=== PATIENT | male | born 1950 | race Caucasian/White ===

== ENCOUNTER → 2021-06-28 10:42 | Outpatient (CLI) | payer MEDICARE, SELFPAY ==
[2021-06-28 14:13] LABS: COVID19 -Nasal RAPID Negative (Negative)
== END ==
PROVIDERS: Visit Provider Physician Assistant
DX: Z20.822 Contact with and (suspected) exposure to COVID-19 (principal)
CPT/HCPCS: 87635; C9803

== ENCOUNTER 2021-07-01 05:59 | Observation (INO) | payer MEDICARE, SELFPAY ==
[2021-06-20 11:33] VITALS: BMI 32.3
[2021-07-01] VITALS (13 sets, daily range): BP systolic 103–160; BP diastolic 51–81; PULSE 49–75; RESP 12–20; TEMP 36.2–37.5; O2SAT 14–98; BMI 32.5
--- NOTE | 2021-07-01 06:00 | DI.RAD.S_ITS ---
PROCEDURE: XR KNEE LT 1TO2V INDICATIONS: prosthesis placement TECHNIQUE: 2 view(s) of the knee acquired. COMPARISON: None. FINDINGS: Bones: Patient is status post knee joint arthroplasty. Hardware components are in expected positions. Visualized bony structures are intact. Soft tissues: Overlying postoperative changes are noted. IMPRESSION: Postop changes from left total knee arthroplasty with anatomic left knee alignment. Dictated by: Lopez Bergman M.D. on 07/01/2021 at 10:49 Approved by: Lopez Bergman M.D. on 07/01/2021 at 10:49
[2021-07-01] MEDS: LACTATED RINGERS 1,000 ML 42 ML IV ×2 (07:06→09:17)
[2021-07-01] MEDS: CELECOXIB 200 MG CAPSULE PO (07:20)
[2021-07-01] MEDS: PREGABALIN 75 MG CAPSULE PO (07:20)
[2021-07-01] MEDS: ACETAMINOPHEN 325 MG TABLET 975 MG PO (07:20)
--- NOTE | 2021-07-01 07:25 | SUR.PREOP ---
Monitoring initiated and maintained throughout procedure. O2 2LNC applied. 0737 - Adductor canal nerve block started. 0739 - Timeout performed by Dr Arredondo. 0741 -Injection time. 0742 - Block end time. Patient remained stable throughout procedure. No adverse reactions noted.
--- NOTE | 2021-07-01 07:27 | PM.PREOP ---
Pre-operative Note COVID-19 COVID-19 status: Negative Result date/Date tested (Pos, Neg/Pending): 06/28/21 Interval Note History & Physical reviewed/Exam performed by Physician: Yes Changes to H&P: No
--- NOTE | 2021-07-01 07:27 | PM.OP.1 ---
Operative Date/Time/Diagnoses Date of procedure: 07/01/21 Time of procedure: 09:38 Pre-op diagnosis: Left knee osteoarthritis Post-op diagnosis: same Procedure & Clinicians Procedure: Left total knee replacement Same procedure as scheduled: Yes Indications: The patient has had progressively worsening left knee pain with radiographic changes consistent with arthritis. Non-operative management has failed and the patient has requested total knee replacement. The risks, benefits and alternatives to surgery were discussed with the patient prior to proceeding. Risks discussed included, but were not limited to, failure to relieve pain, stiffness, infection, nerve damage, deep venous thrombosis, pulmonary embolism, stroke, coma, heart attack, permanent paralysis and , as well as the potential need for eventual revision of the prosthetic. Surgeon: Jordin Ibanez Pulling Unit Operator: Miguel Angel Hahn Click Yes if Unassisted: No Anesthesia Type: General, Spinal and Local Operative Notes Findings: Significant tricompartmental osteoarthritis particularly in the medial and patellofemoral joints. Closure Type: primary Specimen(s): none sent Prosthetic devices, grafts, tissues, transplants, or devices: Implants used in this procedure were manufactured by the [employer] and [employer] and included the BCS II Journey total knee replacement with a size 8 Oxinium femoral component, size 7 left non porous tibial base plate, a 9 mm cross-linked polyethylene insert, and a 38 mm oval Arlin II patellar component. Applied: implant(s) Estimated Blood Loss (mL): 25 Blood products transfused: none Tourniquet time (min): 56 Procedure in detail: The patient was seen in the pre-operative area, where the left knee was identified as the operative site and this was marked with my initials. The patient received pre-operative antibiotics, and was taken to the operating room and placed on the operative table in the supine position. After satisfactory anesthesia, a full stack web developer out was performed. The left leg was encircled with a tourniquet about the proximal thigh, and the leg was prepared from the toes to the tourniquet with ChloroPrep in the usual fashion and draped through sterile drapes. The leg was elevated and exsanguinated with Eschmark bandage and the tourniquet inflated to 250 mmHg pressure. The knee was approached through an approximately 18 cm incision centered over the patella and carried into the knee through a medial parapatellar arthrotomy. The anterior osteophytes and soft tissues were removed. The rotational landmarks of Chualar's line and the transepicondylar axis were marked on the femur with electrocautery, and intramedullary guide holes for the femur and tibia were created. The distal femoral cut was made in 6 degrees of valgus using the intramedullary guide at the primary cut setting. The proximal tibial cut was then made using the intramedullary guide, taking 9 mm of bone off the less involved side. The extension gap was checked and the rotation of the femoral component confirmed with the gap balancing blocks. The anterior, posterior and chamfer cuts were then made. The posterior osteophytes and soft tissues were then removed. The posterior capsule was injected with part of a mixture of 60 ml 0.25% Marcaine mixed with 20 ml Exparel and 4 mg of morphine for post-operative pain control. The remainder of this mixture was injected into the capsule and subcutaneous tissues during cement curing. The tibia was prepared with the rotation set by an extra medullary guide. Trial tibial and femoral components were then placed and the intercondylar notch cut through the femoral trial. Range of motion was 0-135 degrees, with good stability throughout the range. The patella was then cut to accommodate the patellar prosthetic. There was no need for a lateral release. The trials were then removed, and the femoral hole plugged with a bone plug. The bone was prepared with pulsatile lavage, and dried with a sponge. Cement was applied and the final prosthetics placed. Excess cement was removed during and after cement curing. After confirming there was no extruded cement posteriorly, the final tibial insert was placed. The knee was copiously irrigated and the tourniquet deflated. Hemostasis was obtained. The capsule was closed with interrupted # 2 polyester sutures. The subcutaneous layer was closed with 3-0 Vicryl, and the skin with a running 3-0 V-Lock suture and Dermabond. An Aquacel Ag dressing was applied and the patient was taken to recovery having tolerated the procedure well. Post-operative Condition: stable Disposition: PACU Plan for aftercare: The patient will be maintained on a standard total knee replacement protocol with weight bearing as tolerated. The patient will receive aspirin and sequential compression devices for DVT prophylaxis. The patient will be discharged home when safe for the home environment.
[2021-07-01] MEDS: TRANEXAMIC ACID 1,000 MG VIAL 1000 MG INJ ×2 (08:04→09:09)
[2021-07-01] MEDS: CEFAZOLIN 1 GM VIAL 2 GM IV (08:04)
--- NOTE | 2021-07-01 08:19 | PM.PROC.1 ---
Procedures Date/Time Date of procedure: 07/01/21 Time of procedure: 07:40 Nerve Block Time out performed: Yes Local anesthetic used: bupivacaine 0.5% Location of anesthetic used: LEFT Amount of anesthesia used (mL): 20 Nerve blocks: femoral (adductor canal) Procedure successful: Yes Patient tolerated procedure: well and no complications Complications: none Additional comments: Adductor canal nerve block performed for post-op pain control at surgeon request. Patient was positioned with IV, O2, monitors and rescue meds available. Prepped and timeout performed. Target identified with continuous ultrasound guidance. 20mL of bupivicaine 0.25% was injected perineurally with intermittent aspiration and injection. No blood, no paresthesias, no acute complications. Ultrasound pic attained.
--- NOTE | 2021-07-01 08:22 | SUR.OPER ---
Supine on padded OR bed. Pillow under head, arms secured on padded armboards <90 degree abduction. Safety belt across torso. Right leg secured with tape over blanket over lower leg. Left leg secured in DeMay positioner. Foam padded brace at thigh of operative leg.
[2021-07-01] MEDS: BUPIVACAINE 0.25% (PF) 60 ML, EPINEPHrine 0.3 MG INJ (08:28)
[2021-07-01] MEDS: BUPIVACAINE LIPOSOME 266 MG/20 ML VIAL INJ (08:29)
[2021-07-01] MEDS: MORPHINE 4 MG/ML INJ INJ (08:30)
--- NOTE | 2021-07-01 10:36 | SUR.PHASEI ---
Pacu note: 1014-Patient wide aa&Ox4. vss. spinal progressing downward.sensation=dull at knees bilaterally. able to see begin to move rt foot and attempt bend knee, left foot/toes-no motion and lateral leg motion improving. BLE +2 dp/pt palpable pulses,less than 3 sec refill, toes cool to touch but improving. iv converted to saline lock rt arm. tolerating ice chips well. no nausea or pain. dsg to left knee cdi-no drains. HNV. no signs of sleep apnea noted. 1015-Report to Alex FOWLER on floor by phone . Pt meets criteria for transfer. 1025-off monitor and transfer pt by bed with walker,cpap, and 1 bag of clothes. 1030-update at bedside to Alex FOWLER.
[2021-07-01] MEDS: LACTATED RINGERS 1,000 ML 100 ML IV (11:51)
[2021-07-01] MEDS: ACETAMINOPHEN 325 MG TABLET 650 MG PO ×2 (14:33→20:48)
--- NOTE | 2021-07-01 14:34 | PT.IIE ---
Current Diagnoses Unilateral primary osteoarthritis, left knee (07/01/21) Surgery Performed Operation Date: 07/01/21 07:45 Actual Procedures p Total Knee Arthroplasty(Left) - Jordin Ibanez MD Medical History (Last Updated 06/20/21 @ 11:17 by Alexsandra Crespo RN) Acid reflux CAD (coronary artery disease) Deviated septum Easy bruisability Hearing impaired HLD (hyperlipidemia) HTN (hypertension) ARTURO on CPAP (2017) Osteoarthritis Skin cancer Physical Therapy Inpatient Evaluation/Re-Eval M1 PT/OT-IP Prior Functional Status Start: 07/01/21 11:35 Freq: NEEDED Status: Active Protocol: Document 07/01/21 14:34 JG (Rec: 07/01/21 15:11 ALONZO [id number]) Medical Review Prior Functional Status Medical History Reviewed Yes Diet/Fluid Consistency Regular Communication pt was able to communicate fully Mobility and Gait Started walking program post- L4/L5 spinal fusion. If walking golf course when golfing, will walk a total of 4-4.25 miles. Knee pain would increase significantly after walking. Would use home cryocuff for icing post- activity. Knee pain has progressively gotten worse in last 3 years. Activities of Daily Living and IADL's Indep for all ADLs Prior Functional Level (Other details) pt had L4-L5 fusion 3 years ago and had to redo surgery 30 days later as disk spacer from placement. lost 40 pounds recently from intentional lifestyle changes. Social History Household Members spouse Living Arrangements House Number of Floors (Floors) One Floor Number of Stairs To Enter/Railing? None Home Environment High Toilet,Walk in Shower, Built-In Shower Seat Home Equipment Front Wheel Walker,Hand Held Shower,Long Handled Shoe Horn Employment Status Retired Additional Social History Comment retired from finance industry. pt and pt's purchased home 3 years ago and remodeled so entire home is level including entry/exit and access to patio. has trekking poles he uses for hiking and plans to transition from FWW to trekking poles as needed post-L TKA. M2 PT-IP Current Condition Start: 07/01/21 11:35 Freq: NEEDED Status: Active Protocol: Document 07/01/21 14:34 JPiper (Rec: 07/01/21 15:11 ALONZO [id number]) Physical Therapy Current Condition Current Condition Evaluation Date 07/01/21 Treatment Diagnosis L TKA, difficulty walking, reduced L knee ROM, reduced L LE sensation Onset Date 07/01/21 M3 PT-IP Subjective Start: 07/01/21 11:35 Freq: NEEDED Status: Active Protocol: Document 07/01/21 14:34 ALONZO (Rec: 07/01/21 15:11 ALONZO [id number]) Subjective Physical Therapy Visit Type Type Initial Evaluation Visit Start Time 13:38 Visit Stop Time 13:34 Total Visit Minutes 56 Notes SPT Tuyet was directly supervised by DPT Taylor Pt was lying supine in bed w/ head and knees elevated. Pt's Monica was in room as well. When asked, pt denied being in pain and stated he was ready to amb. Number of SUPERVISOR RECLAMATION Visits 0 Physical Therapy Visit Comments Patient Comments Pt states he wants to go home today. Pt reports that recovery post-lumbar surgery was worse compared to cardiac bypass surgery and he hopes the TKA will be somewhere inbetween. Patient Goals Walk without pain for unlimited duration. Play golf without pain. Therapy Pain Assessment Pain Present Pain Present Pain Reported Location Headache Intensity 7 Scale Used Numeric (0 - 10) Description Acute,Sharp Pain Behaviors Holding Area Pain Management Techniques Apply Cold L Knee Intensity 2 Scale Used Numeric (0 - 10) Description Aching,Dull,With Movement Pain Management Techniques Apply Cold,Modification of Treatment M4 PT-IP Mobility and Gait Start: 07/01/21 11:35 Freq: NEEDED Status: Active Protocol: Document 07/01/21 14:34 ALONZO (Rec: 07/01/21 15:11 ALONZO [id number]) PT-Bed Mobility Assessment Rolling Type of Rolling Roll to Left Level of Assist Standby Assistance Supine to Sit Supine to Sit Standby Assistance,Head of Bed Elevated Sit to Supine Sit to Supine Standby Assistance,Head of Bed Elevated Scooting Scooting to Edge of Bed Standby Assistance Scooting Up and Down in Bed Standby Assistance PT-Transfer Assessment Sit to and From Stand Sit to and from Stand Contact Guard Assistance, Minimal Assistance Equipment Transfer Assistive Device Bed Rail,Gait Belt,Front Wheeled Walker Orthotic/Prosthetic Devices or Brace: No Transfers Transfer Destination Chair Transfer Technique Stand Step Pivot Transfer Ability Level of Assist Contact Guard Assistance, Minimal Assistance Comments Mobility Comments Pt required mod cueing to decrease L knee flex during transfers and bed mob. Pt wanted head of bed elevated for bed mob. Pt req mod cueing for waiting on gait belt, FWW management, and PT role in transfers. Pt was eager to amb and may need continued safety and body mechanics education. Gait Assessment Gait Gait Assistance Required: Contact Guard Assist,Minimum Assistance Distance (Feet) 15 Able to Maintain Weight Bearing Status Yes During Gait Assistive Devices Assistive Device Gait Belt,Front Wheeled Walker Orthotic/Prosthetic Devices or Brace: No Gait Deviations General Gait Pattern Within Normal Limits Factors Limiting Gait Function Factors Limiting Gait Function Decreased Activity Tolerance, Decreased Sensation,Limited Range of Motion Comments Gait Comments Decreased weight bearing on L. Upon standing, pt began involuntarily voiding which continued while amb. Pt didn't have the urge to void likely due to decreased sensation. Pt requested disposable padded underwear which were provided. This is likely due to decreased sensation. After approx 15 feet of amb, while in bedside chair, pt had sudden onset of sharp headache . Vitals before amb supine in bed: 126/56, 64 bpm. Vitals after headache onset seated in bedside chair: 185/90, 60bpm. Vitals end of session supine in bed: 160/75, 56bpm. PT-Balance Assessment Sitting Balance and Reactions Static Sitting Balance Ability Normal Standing Balance and Reactions Static Standing Balance Ability Good Dynamic Standing Balance Ability Fair Comments Other Balance Tests/Deviations/Treatment balance affected by sensation : disturbance M5 PT-IP Objective Assessments Start: 07/01/21 11:35 Freq: NEEDED Status: Active Protocol: Document 07/01/21 14:34 (Rec: 07/01/21 15:11 [id number]) Orientation Orientation/Cognition Level of Alertness Alert Orientation Name,Birthday,Place,Situation Language Function Ability No Deficits Noted Safety Awareness Decreased Safety Awareness Memory Description No Deficits Noted Gross Range of Motion Upper Extremity ROM Assessment Within Functional Limits Lower Extremity ROM Assessment Left Impaired Impairments Knee AROM mild decreased flex and mod decreased ext Strength Upper Extremity Strength Assessment Within Functional Limits Lower Extremity Strength Assessment Within Functional Limits Coordination Assessment Gross Coordination Gross Coordination WNL Sensation Assessment Sensation Gross Sensation Left LE Impaired Light Touch Impaired Proprioception (Position) Impaired Sensation Description Numbness Muscle Tone Muscle Tone WNL Yes M6 PT-IP Treatment Start: 07/01/21 11:35 Freq: NEEDED Status: Active Protocol: Document 07/01/21 14:34 JG (Rec: 07/01/21 15:11 Melony [id number]) Physical Therapy Treatment Exercises Exercises Heel Slides Education Education Provided Precautions,Weight Bearing Status,Post-Op Packet,Safety M7 PT-IP Assessment and Plan Start: 07/01/21 11:35 Freq: NEEDED Status: Active Protocol: Document 07/01/21 14:34 JPiper (Rec: 07/01/21 15:11 Melony [id number]) PT Summary Assessment and Plan Potential Rehabilitation Potential Excellent Status of Condition at Evaluation Evolving Summary Impairments ROM,Sensation,Bed Mobility, Transfers,Gait,Activity Tolerance Assessment Summary Pt is 71 year old male s/p L TKA. PLOF: Pt was previously able to walk up to 4.25 miles while golfing with significant increase in L knee pain which was allevated some with icing . CLOF: Pt was able to transfer from bed to bedside chair and amb approx 15 feet w /FWW and CGA-min A in the room . After 15 feet of amb, while sitting in bedside chair, pt had an sudden onset of sharp headache. Nurse was contacted and provided IV medication and cold compress. Pt was assisted back into bed. PT anticipates pt will progress while at hospital to be able to safely discharge home w/ caregiving. Pt will require outpatient PT for L TKA rehab and recovery. Goals Bed Mobility Goal Independent Transfer Goal Standby Assistance,Front Wheeled Walker Gait Goal Standby Assistance,Front Wheel Walker Gait Distance 200 Days to Meet Goals 2 Frequency of Treatment Frequency Of Treatment Twice a Day Treatment Plan Physical Therapy Treatment Plan Bed Mobility Training,Transfer Training,Gait Training, Therapeutic Exercise,Post Op Education,Discharge Planning, Hot or Cold Pack,Neuromuscular Re-ed Other Recommendations and Next Treatment Pt education re safety and L Focus LE placement during transfers and bed mob. Gait training to increase amb and activity tolerance. Monitor vital signs during activity. Weight Bearing Status Weight Bearing Status Weight Bear as Tolerated Recommendations To Nursing Amount of Assist Needed 1 Person Assist Discharge Recommendations PT Discharge Recommendations Home,Home with Assistance, Outpatient PT Transportation Needs at Discharge Private Vehicle Treatment was provided by Tuyet Whitmore, SPT and supervised by Taylor Bhatt, PT. I personally reviewed this note and agree with its contents.
[2021-07-01] MEDS: HYDROMORPHONE 0.5 MG INJ 0.2 MG IV (14:36)
--- NOTE | 2021-07-01 14:58 | PC.NURSE ---
Patient reported headache when attempting to work with PT for first time. Per PT patient was incontinent of urine when standing up and still having numbness to left leg. Patient reports dull ache to left knee. Requests icy cold washcloth across forehead. Given tylenol as scheduled and prn IV dilaudid. Denies n/v, chest pain, jaw pain or other complaint. Patient states headache is resolving once laying back in bed with washcloth on. Call light and urinal within reach. Will continue to follow
[2021-07-01] MEDS: hydrOXYzine pamoate 25 MG CAPSULE PO (20:48)
[2021-07-01] MEDS: IBUPROFEN 400 MG TABLET PO (20:48)
[2021-07-01] MEDS: ASPIRIN EC 81 MG TABLET PO (20:48)
[2021-07-01] MEDS: METOPROLOL IR 25 MG TABLET PO (20:49)
[2021-07-01] MEDS: ATORVASTATIN 20 MG TABLET 40 MG PO (20:49)
[2021-07-01] MEDS: TAMSULOSIN 0.4 MG CAPSULE PO (20:49)
[2021-07-01] MEDS: DOCUSATE 100 MG CAPSULE PO (20:49)
[2021-07-02] MEDS: HYDROMORPHONE 0.5 MG INJ 0.2 MG IV (02:42)
[2021-07-02 04:16] VITALS: BP 120/60; PULSE 45; RESP 17; TEMP 36.6; O2SAT 93
[2021-07-02] MEDS: PANTOPRAZOLE DR 40 MG TABLET PO (06:33)
[2021-07-02 07:30] VITALS: BP 139/64; PULSE 46; RESP 16; TEMP 36.5; O2SAT 95
--- NOTE | 2021-07-02 07:31 | P.DS_ITS ---
History of Present Illness History of Present Illness Date Patient Seen: 07/02/21 Time Patient Seen: 07:32 Chief complaint: Left knee pain s/p left TKA Narrative: Patient is complaining of mild left knee pain this morning. He denies any new numbness or tingling, although he has baseline numbness in bilateral feet due to back surgery 3 years ago. Overall he is feeling well and would like to be discharged home today Discharge Providers Provider Discharge Date: 07/02/21 Primary care physician: Alen Hernandez MD Consults: 07/01/21 10:31 Consult to Discharge Planning Routine Comment: Consult to Physical Therapy Evaluate & Treat Comment: Physician Instructions: postop TKA protocol Discharge provider: Nelida Dobbs PA-C Summary Hospital Course Discharge Diagnosis: Left knee osteoarthritis Hospital Course: Date of procedure: 07/01/21 Time of procedure: 09:38 Procedure & Clinicians Procedure: Left total knee replacement Same procedure as scheduled: Yes Indications: The patient has had progressively worsening left knee pain with radiographic changes consistent with arthritis. Non-operative management has failed and the patient has requested total knee replacement. The risks, benefits and alternatives to surgery were discussed with the patient prior to proceeding. Risks discussed included, but were not limited to, failure to relieve pain, stiffness, infection, nerve damage, deep venous thrombosis, pulmonary embolism, stroke, coma, heart attack, permanent paralysis and , as well as the potential need for eventual revision of the prosthetic. Surgeon: Jordin Ibanez Relationship Advisor: Miguel Angel Hahn Click Yes if Unassisted: No Anesthesia Type: General, Spinal and Local Operative Notes Findings: Significant tricompartmental osteoarthritis particularly in the medial and patellofemoral joints. Closure Type: primary Specimen(s): none sent Prosthetic devices, grafts, tissues, transplants, or devices: Implants used in this procedure were manufactured by the [employer] and [employer] and included the BCS II Journey total knee replacement with a size 8 Oxinium femoral component, size 7 left non porous tibial base plate, a 9 mm cross-linked polyethylene insert, and a 38 mm oval Arlin II patellar component. Applied: implant(s) Estimated Blood Loss (mL): 25 Blood products transfused: none Tourniquet time (min): 56 Status at Discharge Cognitive/behavioral status at discharge: oriented Functional status at discharge: uses cane/walker Overall status at discharge: patient is progressing back to baseline Exam Vital Signs (past 8 hours): - 07/02/21 04:16 Temperature 97.8 F Pulse Rate 45 L Respiratory Rate 17 Blood Pressure 120/60 Pulse Oximetry 93 Oxygen Delivery Method Room Air Oxygen Flow Rate 0 Narrative Exam Narrative: Pleasant 71-year-old male, resting comfortably in bed, no acute distress. Dressing is clean, dry, intact. Bilateral lower extremity motor functions are grossly intact, sensation is grossly intact to light touch bilaterally. Calves are soft, nontender to palpation. Objective Labs Result Diagrams: 07/02/21 06:45 PFSH Medical History Acid reflux CAD (coronary artery disease) Deviated septum Easy bruisability Hearing impaired HLD (hyperlipidemia) HTN (hypertension) ARTURO on CPAP (2016) Osteoarthritis Skin cancer Surgical History History of lumbar spinal fusion (09/2018) Hx of arthroscopy of left knee (2006) Hx of arthroscopy of right knee (2003) Hx of heart artery stent (02/2009) Hx of heart artery stent (10/2012) Hx of heart artery stent (06/2016) Hx of umbilical hernia repair (2004) S/P CABG x 4 (2005) Social History household members: spouse Smoking Status: Never smoker alcohol intake: current Discharge Assessment & Plan Assessment and Plan Assessment: Stable status post left total knee arthroplasty Plan of Treatment: -mobilize with PT. Weightbearing as tolerated with front wheel walker -continue with current pain regimen and DVT prophylaxis. We will cancel ibuprofen and change to meloxicam. -DC home today once cleared by PT. Discharge Plan Discharge Plan Patient Disposition: Home Discharge orders & Medications Discharge Orders: Discharge (Order); Ordered 07/02/21 Ordered By: Nelida Dobbs Prescriptions: New acetaminophen 500 mg capsule 500 mg PO Q4H MDD Max 3000 mg per day PRN (Reason: fever or pain) Qty: 90 0RF aspirin 81 mg Tablet,Delayed Release (Dr/Ec) 81 mg PO BID 42 Days Qty: 84 0RF Rx Instructions: Prevent blood clots docusate sodium 100 mg Capsule 100 mg PO BID PRN (Reason: Constipation from narcotic pain meds) Qty: 30 0RF hydroxyzine pamoate 25 mg Capsule 25 mg PO Q6HR PRN (Reason: Pain, spasm, nausea) Qty: 40 1RF meloxicam 15 mg tablet 15 mg PO DAILY PRN (Reason: Pain/inflammation) 42 Days Qty: 45 0RF oxycodone 5 mg Tablet 5 mg PO Q3HR PRN (Reason: Pain, Moderate (4-6)) Qty: 30 0RF Continued sennosides [senna] 8.6 mg tablet 8.6 mg PO BID PRN (Reason: Constipation) 0RF tamsulosin 0.4 mg capsule 0.4 mg PO BEDTIME 0RF rosuvastatin [Crestor] 20 mg tablet 20 mg PO BEDTIME 0RF metoprolol tartrate 25 mg tablet 25 mg PO BID 0RF lansoprazole 30 mg Capsule,Delayed Release(Dr/Ec) 30 mg PO BEDTIME 0RF Discontinued acetaminophen 500 mg Tablet 1,000 mg PO BID PRN (Reason: Pain) 0RF Follow up/Referrals: Alen Hernandez MD [Primary Care Provider] - Jordin Ibanez MD [Physician] - (10-14 days for a postoperative visit) Diet/Activity/Treatments Diet: Diet as Tolerated and Regular Other treatments: Medications: -Aspirin 81mg twice daily x6 weeks to prevent blood clots. -OTC Tylenol 500 mg 1 tablet every 4 hours as needed for pain/fever. Max 6 tablets per day. -meloxicam 15 mg 1 tablet daily for pain/inflammation. -Oxycodone 5 mg take 1-2 tablets every 4 hours as needed for moderate-severe pain (narcotic pain medication). -Vistaril (hydroxyine) 25mg 1 tab every 4 hours as needed for spasms/pain/nausea. -As needed medications: -Ducolax and /or MiraLax as needed for constipation from narcotic pain medications. -Pepcid AC as needed for stomach upset (usually from aspirin or ibuprofen). Dressing/Wound care: -Remove the Rony wrap 48 hours after surgery. -Keep Aquacell dressing in place until postoperative follow-up office visit. -Okay to shower. Keep wound out of direct water stream. No soaking or submerging until all the scabs fall off (approximately 6 weeks). -Please call the office if dressing becomes wet, soiled, or saturated. Activities: -Weight-bearing as tolerated. Use front wheeled walker, and progress to cane when safe. -Continue with home exercises as directed by your physical therapist. -Elevate ?toes above the nose if you have significant swelling in your lower leg. (A wedge pillow is easiest.) -Ice your incision as needed for pain/inflammation/swelling. Protect your skin with a folded pillowcase. Follow-up: -Follow-up with your surgeon or PA in the office in 10-14 days after surgery. -Follow-up with your surgeon 6 weeks postoperatively. Call the office if you have chest pain, shortness of breath, significant swelling that will not resolve with elevating, fever over 101?, significantly worsening pain. [facility]: [phone] Skin/Wound/Dressing Care Report to your healthcare provider any signs of infection, such as:: chills, fever, night sweats, unusual drainage and unusual redness Visit Report/Discharge Packet Instructions: DI for Knee Replacement Stand Alone Forms: Surgery Discharge Discharge Data Primary Care Provider: Alen Hernandez Attending Provider: Jordin Ibanez
[2021-07-02 07:33] LABS: Hematocrit 42.8 % (41-53); Hemoglobin 14.7 g/dL (13.5-17.5)
[2021-07-02] MEDS: METOPROLOL IR 25 MG TABLET PO (08:56)
[2021-07-02] MEDS: DOCUSATE 100 MG CAPSULE PO (08:56)
[2021-07-02] MEDS: ASPIRIN EC 81 MG TABLET PO (08:56)
[2021-07-02] MEDS: ACETAMINOPHEN 325 MG TABLET 650 MG PO (08:57)
[2021-07-02] MEDS: MELOXICAM 7.5 MG TABLET 15 MG PO (09:03)
--- NOTE | 2021-07-02 10:00 | PT.IPTN ---
Current Diagnoses Unilateral primary osteoarthritis, left knee (07/01/21) Surgery Performed Operation Date: 07/01/21 07:45 Actual Procedures p Total Knee Arthroplasty(Left) - Jordin Ibanez MD Physical Therapy Treatment Note M2 PT-IP Current Condition Start: 07/01/21 11:35 Freq: NEEDED Status: Discharge Protocol: Document 07/01/21 14:34 JG (Rec: 07/01/21 15:11 JG [id number]) Physical Therapy Current Condition Current Condition Evaluation Date 07/01/21 Treatment Diagnosis L TKA, difficulty walking, reduced L knee ROM, reduced L LE sensation Onset Date 07/01/21 M3 PT-IP Subjective Start: 07/01/21 11:35 Freq: NEEDED Status: Discharge Protocol: Document 07/02/21 09:21 KS (Rec: 07/02/21 12:13 KS [id number]) Subjective Physical Therapy Visit Type Type Treatment Note Visit Start Time 09:21 Visit Stop Time 10:00 Total Visit Minutes 39 Number of METAL NUMERICAL CONTROL PROGRAMMER Visits 1 Physical Therapy Visit Comments Patient Comments Pt agreeable to work with therapy. M4 PT-IP Mobility and Gait Start: 07/01/21 11:35 Freq: NEEDED Status: Discharge Protocol: Document 07/02/21 09:21 KS (Rec: 07/02/21 12:13 KS [id number]) PT-Bed Mobility Assessment Scooting Scooting to Edge of Bed Standby Assistance Scooting Up and Down in Bed Standby Assistance PT-Transfer Assessment Sit to and From Stand Sit to and from Stand Standby Assistance,1 Person Assistance,Use of Upper Extremities Equipment Transfer Assistive Device Gait Belt,Front Wheeled Walker Orthotic/Prosthetic Devices or Brace: No Transfers Transfer Destination Chair Transfer Technique Pt ambulated w/ FWW Transfer Ability Level of Assist Standby Assistance,Contact Guard Assistance,1 Person Assistance,Use of Upper Extremities Comments Mobility Comments Pt in chair upon arrival from therapy. SBA for sit<>stand w/ FWW and cues to extend LLE to decrease pain when standing. Pt denied dizziness or lightheadedness. He then ambulated ~100 ft w/ FWW SBA to CGA. Pt demonstrated approproate use of FWW, cues for equal step length. Pt returned to room and chair and refused bed mobility, stating he will likely sleep in recliner or bed w/ wedge pillow. Reveiwed LE exercises to improve blood flow, strengthening, and ROM. Pt tolerated exercises well. Pt feels he is ready to return home w/ to assist. Pt left in room w/ all needs in reach. Gait Assessment Gait Gait Assistance Required: Standby Assistance,Contact Guard Assist,1 Person Assist Distance (Feet) 100 Able to Maintain Weight Bearing Status Yes During Gait Assistive Devices Assistive Device Gait Belt,Front Wheeled Walker Orthotic/Prosthetic Devices or Brace: No Gait Deviations General Gait Pattern Ataxic,Decreased Stride Length Factors Limiting Gait Function Factors Limiting Gait Function Decreased Activity Tolerance, Decreased Sensation,Limited Range of Motion Comments Gait Comments Please refer to mobility section for details. PT-Balance Assessment Sitting Balance and Reactions Static Sitting Balance Ability Normal Dynamic Sitting Balance Ability Good Standing Balance and Reactions Static Standing Balance Ability Good Dynamic Standing Balance Ability Fair Device Used FWW M5 PT-IP Objective Assessments Start: 07/01/21 11:35 Freq: NEEDED Status: Discharge Protocol: Document 07/01/21 14:34 J (Rec: 07/01/21 15:11 J [id number]) Orientation Orientation/Cognition Level of Alertness Alert Orientation Name,Birthday,Place,Situation Language Function Ability No Deficits Noted Safety Awareness Decreased Safety Awareness Memory Description No Deficits Noted Gross Range of Motion Upper Extremity ROM Assessment Within Functional Limits Lower Extremity ROM Assessment Left Impaired Impairments Knee AROM mild decreased flex and mod decreased ext Strength Upper Extremity Strength Assessment Within Functional Limits Lower Extremity Strength Assessment Within Functional Limits Coordination Assessment Gross Coordination Gross Coordination WNL Sensation Assessment Sensation Gross Sensation Left LE Impaired Light Touch Impaired Proprioception (Position) Impaired Sensation Description Numbness Muscle Tone Muscle Tone WNL Yes M6 PT-IP Treatment Start: 07/01/21 11:35 Freq: NEEDED Status: Discharge Protocol: Document 07/02/21 09:21 KS (Rec: 07/02/21 12:13 ND [id number]) Physical Therapy Treatment Exercises Exercises Ankle Pumps,Gluteal Sets,Quad Sets,Heel Slides,Straight Leg Raises,Short Arc Quads,Seated Knee Flexion/Extension Education Education Provided Precautions,Weight Bearing Status,Post-Op Packet,Safety M7 PT-IP Assessment and Plan Start: 07/01/21 11:35 Freq: NEEDED Status: Discharge Protocol: Document 07/02/21 09:21 KS (Rec: 07/02/21 12:13 KS [id number]) PT Summary Assessment and Plan Potential Rehabilitation Potential Excellent Status of Condition at Evaluation Evolving Summary Impairments ROM,Sensation,Bed Mobility, Transfers,Gait,Activity Tolerance Assessment Summary Pt demonstrated decreased need for assist today. SBA for sit <>stand, SBA to CGA for ambulation w/ FWW. Pt demonstrated good use of FWW and was able to ambulate ~100 ft, gait improved equal step lengths w/ cues and distance. Pt showed good tolerance for LE exercises. Pt feels safe and ready to return home. He will benefit from outpatient physical therapy to regain strength and ROM. Goals Bed Mobility Goal Independent Transfer Goal Standby Assistance,Front Wheeled Walker Gait Goal Standby Assistance,Front Wheel Walker Gait Distance 200 Days to Meet Goals 2 Frequency of Treatment Frequency Of Treatment Twice a Day Treatment Plan Physical Therapy Treatment Plan Bed Mobility Training,Transfer Training,Gait Training, Therapeutic Exercise,Post Op Education,Discharge Planning, Hot or Cold Pack,Neuromuscular Re-ed Other Recommendations and Next Treatment Pt education re safety and L Focus LE placement during transfers and bed mob. Gait training to increase amb and activity tolerance. Weight Bearing Status Weight Bearing Status Weight Bear as Tolerated Recommendations To Nursing Amount of Assist Needed 1 Person Assist Discharge Recommendations PT Discharge Recommendations Home,Home with Assistance, Outpatient PT Transportation Needs at Discharge Private Vehicle
--- NOTE | 2021-07-02 11:37 | PC.NURSE ---
Patient cleared by PT and eager to leave. IV dc'd intact. Home care handouts and discharge instructions reviewed with patient and his , they state understanding and have no further questions or concerns at this time. Prescriptions sent electronically by . Patient instructed to call [facility] office with questions or concerns for the surgeon, or to seek emergent care for an emergency. Patient has follow up appointments already scheduled. Escorted out via wheelchair by FIRE CAPTAIN to be discharged to home with his .
--- NOTE | 2021-07-02 12:39 | CM.DANOTE ---
DCP/Assessment: Reviewed chart. Patient is a 71yr male admitted to [facility]. for elective left TKA performed on 07-01-[address] Ibanez. PCP is Dr. Kelly. Primary payor is 1[facility]. Attempted to meet with patient this afternoon. Patient cleared by Orthopedics and therapy to go home. Therefore, CM team did not see in person. Per Nursing patient discharging today without any d/c planning needs. P: Home today. KJS Discharge Planning/Care Management CM Discharge Assessment Start: 07/02/21 12:35 Freq: Status: Active Protocol: Document 07/02/21 12:35 KJS (Rec: 07/02/21 12:39 KJS [id number]) Discharge Planning Assessment Assigned Typewriter Operator Automatic TAB Perez Contact Information Sandhya Kaur (spouse) # [phone] Advance Directives? Yes Advance Directives on File No History Provided By Medical Record Prior Living Arrangements House Household Members spouse Type of transporation used prior to Drives own vehicle admit Independent with ADL's Yes: Per provider and nursing notes. Is patient alert and oriented? Yes: Per provider and nursing notes. Caregiver for Another No DME Already Rented / Owned FWW / Walker Patient/Family Preference OP PT Therapy Barriers to Discharge No Discharge Plan Home Transportation Arrangement Family to provide transport. Review Status In Process Next Review Type Continued Stay Review Pre-Anesthesia Assessment Start: 06/19/21 08:36 Freq: Status: Discharge Protocol: Document 06/20/21 11:33 CAB (Rec: 06/19/21 09:18 CAB [id number]) Pre-Anesthesia Assessment Preferred Name Elvin Patient Information Reviewed Via Chart Review Comment LAbs/EKG done @ [facility] per pt, not here, COVID screen-pt needs to schedule Primary Care Provider Alen Hernandez Medical Clearance Received Yes Seen Specialist in Last 12 Months Yes Specialist Seen Orthopedist Comment PCP clearance form scanned Primary Language Syriac Advertising Designer Required No Height 185.42 cm Weight 111.13 kg Body Mass Index (BMI) 32.3 Hearing Ability Hard of Hearing,Use of Hearing Aid Visual Assist Glasses Dentition Type Teeth, Natural Present Barriers to Learning None Comment Pt does not plan to wear glasses or hearing aids dos Hx Anesthesia Reactions No Hx Family Anesthesia Reaction No Hx Malignant Hyperthermia No Hx Blood Transfusions No Anesthesia Review Requested No alcohol intake current Alcohol Intake Frequency Other: Occasional Smoking Status Never smoker Substance Use Type does not use Pain Present Pain Reported Musculoskeletal Symptoms Joint Pain History of Falling (Recent or History of No ) Patient is completely paralyzed or No completely immobile Mental Status Oriented to own ability Comment Pt denies walking difficulties Is patient on oxygen? No Does patient have GARCIA/SOB No Hx Sleep Apnea Yes CPAP/BIPAP use prescribed and used routinely Will Bring CPAP/BIPAP DOS Yes Currently Taking a Beta Karthik Yes: Metoprolol Can You Climb a Flight of Stairs Without Yes SOB Hx Chest Pain Yes: r/t CABG x 4, nothing since Hx SOB No Hx Syncope or Dizziness No Anti-Coagulant Therapy No Has a Trans Router No Cardiac Testing No Hx Pacemaker/ICD No Pacemaker Rep Required? No Cardiac Clearance Received Not Applicable Diet Type At Home Regular dysphagia No Gastrointestinal Symptoms Reflux Urinary Catheter Present No Hx Urinary Self Catheterization No Diabetes No Hx Drug Resistant Organism No Presence of External or Internal Medical Yes: CABG x 4, cardiac stents, Devices CPAP, lumbar fusion Have you had any close contact with No someone diagnosed with COVID-19? Received a COVID vaccine? Yes: Booster Received all doses? Yes Lives With spouse Prior Living Arrangements House Number of Floors (Floors) One Floor Support System Spouse Does the Patient Have Assistance After Yes Surgery Patient Discharge Plan Description Return Home Comment Pt advised possible same day surgery per surgeon Feels Safe in Current Environment Yes Been Physically Hurt or Threatened By a No Person in Current Environment Do you have thoughts of harming yourself None or others? Are you currently considering suicide? No Do you have a plan to hurt yourself or No Plan others? Do You Have Any Spiritual Beliefs That No May Affect Your HC Choices? Do You Have Any Cultural Practices That No May Affect Your HC Choices? Comment Bryon Who Can We Speak to About Patient's Care Family, friends Identifying Code for Release of Patient Declines to issue Information Health Care Proxy/Next of Kin Minerva () Health Care Proxy Emergency Contact Name Minerva () Emergency Contact Advance Directives? Yes Advance Directives on File No Requested Patient Bring Advanced Yes Directives DOS Power of Director Of Pupil Personnel Program Yes Power of Director Of Pupil Personnel Program Name Minerva () Power of Director Of Pupil Personnel Program PAC Instructions Bring CPAP/BIPAP,Durable medical equipment,Medications to take/avoid,Nasal antibiotic ,No ETOH/petroleum product on skin DOS,NPO,Post-op transportation,Pre-surgical wash,Sensory aids,Sturdy shoes /comfortable clothes,Do not bring valuables and remove jewelry
== END 2021-07-02 11:42 | disposition home or self-care (01) ==
LOC: OR 06:03 → AC 06:03
PROVIDERS: Admitting Provider Orthopaedic Surgery; PCP Family Medicine; Referring Provider Orthopaedic Surgery; Visit Provider Orthopaedic Surgery
PROC: 0SRD0JZ Replacement of Left Knee Joint with Synthetic Substitute, Open Approach (ICD-10-PCS; CPT 27447; principal; 2021-07-01 07:45)
DX: M17.12 Unilateral primary osteoarthritis, left knee (principal); Z95.1 Presence of aortocoronary bypass graft; I25.10 Atherosclerotic heart disease of native coronary artery without angina pectoris; I10 Essential (primary) hypertension; G47.33 Obstructive sleep apnea (adult) (pediatric); K21.9 Gastro-esophageal reflux disease without esophagitis; E66.9 Obesity, unspecified; Z68.32 Body mass index [BMI] 32.0-32.9, adult
CPT/HCPCS: 27447; 36415; 64450; 73560; 85014; 85018; 97110; 97116; 97161; 97530; C1776; G0378; C9290; J0171; J0690; J1100; J1170; J2270; J2405; J2704

== ENCOUNTER → 2022-06-10 10:35 | Outpatient (CLI) | payer MEDICARE, SELFPAY ==
[2021-07-01 10:36] VITALS: BMI 32.5
--- NOTE | 2022-06-10 10:36 | DI.MRI.S_ITS ---
PROCEDURE: MR PELIS WO/W CON INDICATIONS: Prostate TECHNIQUE: Coronal HASTE, axial T1 FSE with fat saturation, 3-plane nonbreath-hold T2 FSE. After the administration of contrast, dynamic axial, delayed axial and coronal VIBE or 2-D FLASH with fat saturation through the pelvis. Optional diffusion weighted imaging and ADC may be performed. COMPARISON: None. FINDINGS: Image quality: Diffusion weighted and dynamic contrast enhanced images are diagnostic. Prostate: Gland size is 5.3 x 5.1 x 4.4 cm; ellipsoid gland volume is 62 mL. No significant foci of intrinsic T1 hyperintensity to suggest hemorrhage. Multiple BPH nodules. No ADC hypodense foci in the peripheral zone. No significant T2 hypointense nodule identified in the transitional zone. No PI-RADS 4 or 5 observations. Genitourinary system: Bladder wall thickness is normal. Distal ureters are non distended. Bowel and peritoneum: No pathologic free pelvic fluid. Inferior colon and small bowel loops are normal in caliber. Diverticulosis. Nodes and vessels: No pelvic or inguinal adenopathy by size criteria. Iliac vessels are normal in caliber. Soft tissues: No inguinal hernias. Suspect left hydrocele. Bones: Marrow demonstrates normal overall signal, without lesions to suggest metastases. Lumbar spine hardware. IMPRESSION: 1. Prostatomegaly with multiple BPH nodules. 2. No PI-RADS 4 or 5 observation for targeted biopsy. 3. No enlarged lymph nodes. Dictated by: Fuad Love M.D. on 06/10/2022 at 12:05 Approved by: Fuad Love M.D. on 06/10/2022 at 12:16
== END ==
PROVIDERS: PCP Family Medicine; Referring Provider Specialist; Visit Provider Specialist
DX: N40.3 Nodular prostate with lower urinary tract symptoms (principal); N13.8 Other obstructive and reflux uropathy; R97.20 Elevated prostate specific antigen [PSA]; N43.42 Spermatocele of epididymis, multiple
CPT/HCPCS: 72197; A9579